=== PATIENT | male | born 1955 | race Caucasian/White ===

== ENCOUNTER 2017-04-11 06:00 | Day surgery (SDC) | payer BC ==
--- NOTE | 2017-04-08 13:22 | HP ---
DATE OF SURGERY: 04/11/2017 ADMISSION DIAGNOSIS: Five year follow up of colon. ANTICIPATED PROCEDURE: HISTORY OF PRESENT ILLNESS: The patient has had some diverticulitis, some lower abdominal discomfort. He had exam five years ago. He has family history of colon difficulty. Presents for five year follow up examination. He has had some blood per rectum five years ago and probably some colitis. PAST MEDICAL HISTORY: ALLERGIES: PENICILLIN, CODEINE, FENTANYL. MEDICATIONS: Robaxin, losartan, Feldene, Prozac, Crestor. PAST SURGICAL HISTORY: No major surgeries. SOCIAL HISTORY: Negative. FAMILY HISTORY: Negative. REVIEW OF SYSTEMS: Negative. PHYSICAL EXAMINATION: VITAL SIGNS: Normal. CHEST: Clear. COR: Regular. ABDOMEN: No palpable organomegaly or mass. IMPRESSION: Five year follow up.
[2017-04-11] MEDS ORDERED: DEMEROL 50 MG SDV IV ONE (06:01)
[2017-04-11] MEDS ORDERED: VERSED 5 MG/5 ML IV ONE (06:01)
[2017-04-11] MEDS ORDERED: Lactated Ringers 1,000 ML IV ONE ×2 (06:12→06:20)
[2017-04-11 10:56] VITALS: O2SAT 96
[2017-04-11 11:06] VITALS: BP 112/67; PULSE 74
--- NOTE | 2017-04-11 14:00 | OP ---
SURGERY DATE/TIME: 04/11/2017 0840 PREOPERATIVE DIAGNOSES: 1) Five year follow up screening. 2) Strong family history with a parent with colon cancer. POSTOPERATIVE DIAGNOSIS: PROCEDURE: Colonoscopy complete to cecum. SURGEON: Jean Claude Duval M.D. ANESTHESIA: IV sedation 15 minutes monitored. COMPLICATIONS: None. CONDITION: Stable. FINDINGS: Very scant diverticulosis of the colon otherwise normal. INDICATION: The patient does have immediate family member with colon cancer and presents for five year follow up screening. He is 62 years old. DESCRIPTION OF PROCEDURE: He is taken to the endoscopy suite. Left lateral decubitus position. IV sedation titrated. Oximetry kept over 90% and IV sedation was titrated for 15 minutes. Satisfactory anesthesia level present. Anal digital examination satisfactory. Prostate satisfactory. Scope advanced to the cecum. A fairly long ascending colon slightly tedious coming around to hepatic flexure. It is necessary to roll the patient back to about 45 degree angle and the scope tipped back over and come down the ascending to the base of the cecum. Base of the cecum normal. Ileocecal valve normal ascending, hepatic, transverse, splenic. In the descending sigmoid there are four or five isolated singular diverticula with no suggestion of any issue. There were no mucosal lesions rectum and anus. No mucosal lesions. IMPRESSION: No mucosal lesions. There were just a scant number of diverticula in the left colon. The patient had a very healthy, normal colon with a normal mucosa. PLAN: Five year follow up for family history.
[2017-04-11] MEDS ORDERED: Lactated Ringers 1,000 ML IV SCH (15:30)
== END 2017-04-11 10:45 | disposition home or self-care (01) ==
LOC: SDC 06:00
PROVIDERS: ATTEND Surgery
PROC: 0DJD8ZZ Inspection of Lower Intestinal Tract, Via Natural or Artificial Opening Endoscopic (ICD-10-PCS; principal; 2017-04-11)
DX: Z12.11 Encounter for screening for malignant neoplasm of colon (principal); Z80.0 Family history of malignant neoplasm of digestive organs; K57.90 Diverticulosis of intestine, part unspecified, without perforation or abscess without bleeding
CPT/HCPCS: J2175; J2250

== ENCOUNTER 2018-04-10 11:31 | Day surgery (SDC) | payer BC ==
--- NOTE | 2018-04-07 10:26 | HP ---
DATE OF SURGERY: 04/10/2018 ANTICIPATED PROCEDURE: Left inguinal hernia with mesh. HISTORY OF PRESENT ILLNESS: The patient has moderate sized symptomatic left inguinal hernia presents for repair. PAST MEDICAL HISTORY: ALLERGIES: PENICILLIN, CODIENE, FENTANYL. MEDICATIONS: Robaxin, losartan, Feldene, Prozac, Crestor. PAST SURGICAL HISTORY: None recent. SOCIAL HISTORY: Negative. FAMILY HISTORY: Negative. REVIEW OF SYSTEMS: Hypertension, elevated cholesterol. PHYSICAL EXAMINATION: VITAL SIGNS: Normal. CHEST: Clear. COR: Regular. ABDOMEN: Left inguinal hernia. IMPRESSION: Left inguinal hernia. PLAN: Repair.
[~2018-04-10 11:31] MED LIST: CEFAZOLIN 2 GM-D5W BAG** 2 GM/50 ML ML IV ONE; CEFAZOLIN 2 GM-D5W BAG** 2 GM/50 ML ML IV SCH; CLINDAMYCIN-D5W 900 MG/50 ML*** 900 MG/50 ML BAG IV SCH; Lactated Ringers 1,000 ML IV ONE; Lactated Ringers 1,000 ML IV SCH; Sensorcaine 0.25% 10 ML ONE
[2018-04-10] MEDS ORDERED: Zemuron 100 MG/10 ML IV ONE (11:32)
[2018-04-10] MEDS ORDERED: TORAdol 30 mg Injection IV ONE (11:32)
[2018-04-10] MEDS ORDERED: SUBLIMAZE 100 MCG/2 ML IV ONE (11:32)
[2018-04-10] MEDS ORDERED: Zofran 4 MG/2 ML VIAL IV ONE (11:32)
[2018-04-10] MEDS ORDERED: BRIDION 200MG/2ML IV ONE (11:32)
[2018-04-10] MEDS ORDERED: Decadron 4 MG INJ IV ONE (11:32)
[2018-04-10] MEDS ORDERED: Naropin 0.5% 30 ML VIAL IJ ONE (11:32)
[2018-04-10] MEDS ORDERED: DIPRIVAN 200 MG/20 ML IV ONE (11:32)
[2018-04-10] MEDS ORDERED: Levofloxacin 500MG/100ML D5W 500 MG/100 ML BAG IV ONE (13:15)
[2018-04-10] MEDS ORDERED: Zofran 4 MG/2 ML VIAL ONE (14:37)
[2018-04-10] MEDS ORDERED: DILAUDID 2 MG INJECTION ONE ×2 (14:37→15:04)
[2018-04-10] MEDS ORDERED: TORAdol 30 mg Injection ONE (14:46)
[2018-04-10] MEDS ORDERED: APRESOLINE 20 MG/ML INJ ONE (15:00)
[2018-04-10] MEDS ORDERED: Phenergan 25 MG INJ ONE (16:35)
[2018-04-10] MEDS ORDERED: Phenergan 25 MG INJ IV ONE (16:54)
[2018-04-10 17:17] VITALS: O2SAT 94
[2018-04-10 17:32] VITALS: BP 136/80; PULSE 95
--- NOTE | 2018-04-11 10:20 | OP ---
SURGERY DATE/TIME: 04/10/2018 1312 PREOPERATIVE DIAGNOSIS: Symptomatic left inguinal hernia. POSTOPERATIVE DIAGNOSIS: Left inguinal hernia direct. PROCEDURE: Left inguinal herniorrhaphy with mesh. SURGEON: Jean Claude Duval M.D. ANESTHESIA: General endotracheal tube. COMPLICATIONS: None. CONDITION: Stable. INDICATION: A patient with symptomatic hernia. DESCRIPTION OF PROCEDURE: Taken to surgery. General anesthetic. Routine prep and drape. 0.25% Marcaine. Curvilinear incision. External oblique opened along the direction of its fibers. Direct hernia 2 inches this is reduced. It was eventually tucked in with 0 Prolene. A 1 x 4 preshaped mesh was placed, secured with 0 Prolene throughout. The internal ring was one clamp tight. Hemostasis satisfactory. Looked excellent. Cord, ilioinguinal nerve laid back in position. External oblique closed with 0 Vicryl. Mikey fascia closed with 2-0 Vicryl. Skin closed with 4-0 Vicryl. Steri-Strips applied. Sterile dressing applied. The patient tolerated the procedure satisfactorily.
== END 2018-04-10 17:35 | disposition home or self-care (01) ==
LOC: SDC 11:31
PROVIDERS: ATTEND Surgery
DX: K40.90 Unilateral inguinal hernia, without obstruction or gangrene, not specified as recurrent (principal)
CPT/HCPCS: 64486; 76937; 76942; J0360; J0690; J1100; J1170; J1885; J2405; J2550; J2704; J2795; J3010

== ENCOUNTER 2022-09-20 10:16 | Day surgery (SDC) | payer MEDICARE ==
--- NOTE | 2022-09-14 14:21 | HP ---
DATE OF SURGERY: 09/20/2022 HISTORY OF PRESENT ILLNESS: The patient is a 67-year-old male presents with complaints of bad hemorrhoid. It has been getting progressively larger over the last three months. It has been bleeding a lot. He has been having a very hard time getting this cleaned up in the anal area. He does have some prolapsed internal and external on physical exam. PAST MEDICAL HISTORY: Hyperlipidemia. Hypertension. Heart disease. PAST SURGICAL HISTORY: Oral surgery. Hernia repair. ALLERGIES: PENICILLIN. FENTANYL. CODEINE. MEDICATIONS: Multivitamins, aspirin, Gemfibrozil, amlodipine. FAMILY HISTORY: None reported. SOCIAL HISTORY: Occasional alcohol. REVIEW OF SYSTEMS: CONSTITUTIONAL: Denies fever or chills. CHEST: Denies shortness of breath. CVS: Denies chest pain. ABDOMEN: Denies abdominal pain. PHYSICAL EXAMINATION: GENERAL: No acute distress. CHEST: Nonlabored. No shortness of breath. CVS: Regular rate and rhythm. RECTAL: Prolapsed internal and external hemorrhoids. IMPRESSION: Prolapsed internal and external hemorrhoids with recent bleeding. PLAN: Limited hemorrhoidectomy with Dr. Jean Claude Duval. As dictated by Deepika Conte NP.
[~2022-09-20 10:16] MED LIST changes: -CEFAZOLIN 2 GM-D5W BAG** 2 GM/50 ML ML IV ONE; -CEFAZOLIN 2 GM-D5W BAG** 2 GM/50 ML ML IV SCH; -CLINDAMYCIN-D5W 900 MG/50 ML*** 900 MG/50 ML BAG IV SCH; +EXPAREL 133 MG/10 ML VIAL IJ ONE; -Lactated Ringers 1,000 ML IV ONE; -Lactated Ringers 1,000 ML IV SCH; -Sensorcaine 0.25% 10 ML ONE
[2022-09-20] MEDS ORDERED: Lactated Ringers 1,000 ML IV ONE ×2 (10:41→13:46)
[2022-09-20] MEDS ORDERED: MEFOXIN 2 GM PREMIX** 2 GM/50 ML ML IV ONE (10:41)
[2022-09-20 10:45] VITALS: RESP 16
[2022-09-20] MEDS ORDERED: Levofloxacin 500MG/100ML D5W 500 MG/100 ML BAG IV SCH (11:30)
[2022-09-20] MEDS ORDERED: CLINDAMYCIN-D5W 900 MG/50 ML*** 900 MG/50 ML BAG IV SCH (11:30)
[2022-09-20] MEDS ORDERED: Lactated Ringers 1,000 ML IV SCH (11:30)
[2022-09-20] MEDS ORDERED: ANUSOL-HC 2.5% CREAM 30 GM ONE (12:30)
[2022-09-20] MEDS ORDERED: Magnesium Sulfate 1 GM/2 ML VIAL ONE (12:50)
[2022-09-20] MEDS ORDERED: Zemuron 100 MG/10 ML ONE (12:50)
[2022-09-20] MEDS ORDERED: Zofran 4 MG/2 ML VIAL ONE (12:50)
[2022-09-20] MEDS ORDERED: BRIDION 200MG/2ML IV ONE (12:50)
[2022-09-20] MEDS ORDERED: TORAdol 30 mg Injection ONE (12:50)
[2022-09-20] MEDS ORDERED: DIPRIVAN 200 MG/20 ML IV ONE (12:50)
[2022-09-20] MEDS ORDERED: Xylocaine-Mpf 2% 5 Ml Vial ONE (12:50)
[2022-09-20] MEDS ORDERED: Decadron 4 MG INJ ONE (12:50)
[2022-09-20] MEDS ORDERED: OFIRMEV 100 ML IV ONE (12:51)
[2022-09-20] MEDS ORDERED: DEXMEDETOMIDINE 80 MCG/20ML-NS IV ONE (12:52)
[2022-09-20] MEDS ORDERED: Ketamine HCl 50 MG/ML ONE (12:59)
[2022-09-20] MEDS ORDERED: Versed 2 MG/2 ML Injection ONE (12:59)
[2022-09-20] MEDS ORDERED: Ephedrine Sulfate 50 MG/ML ONE (13:49)
[2022-09-20 15:07] VITALS: BP 119/76; PULSE 91; TEMP 97; O2SAT 98
--- NOTE | 2022-09-24 11:05 | OP ---
SURGERY DATE/TIME: 09/20/2022 1316 PREOPERATIVE DIAGNOSIS: Substantial hemorrhoidal disease with recent thrombosed hemorrhoids. POSTOPERATIVE DIAGNOSIS: Two large internal with one thrombosed, one large external. PROCEDURES: 1) Internal hemorrhoidectomy x2. 2) External hemorrhoidectomy x1. SURGEON: Jean Claude Duval M.D. ANESTHESIA: General. COMPLICATIONS: None. CONDITION: Stable. DESCRIPTION OF PROCEDURE: The internals were first with base suture of 0 chromic. The location was milked away from the mucosa. Hemorrhoidal tissue was then clamped and tied off with 2-0 chromic and the base suture and was run out to the skin. On the second hemorrhoid there was both internal and external. The internal was taken similarly and the external was taken similarly and the base suture was run out all the way to the skin past the external. A total of three hemorrhoids were taken. 20 cc of Marcaine long lasting Exparel was placed. The exam otherwise was satisfactory. Allowed two fingertips to start and two fingertips at the end. I did not see any fissures, fistulas or other significant pathology here today.
== END 2022-09-20 15:10 | disposition home or self-care (01) ==
LOC: SDC 10:16
PROVIDERS: ATTEND Surgery
DX: K64.5 Perianal venous thrombosis (principal); K64.4 Residual hemorrhoidal skin tags; K64.8 Other hemorrhoids
CPT/HCPCS: J0694; J1100; J1885; J1956; J2250; J2405; J2704; J3475; A9270-GY